=== PATIENT | male | born 1975 | race African-American/Black ===

== ENCOUNTER 2019-05-05 17:31 | Inpatient (IN) | payer OTHER ==
[~2019-05-05] VITALS: Ht 188 cm; Wt 147.2 kg
[2019-05-05] VITALS (8 sets, daily range): BP systolic 111–151; BP diastolic 53–92
[2019-05-05 18:10] LABS: ABSOLUTE NEUTROPHILS 8.5 thou/uL (1.4-8.2); EOSINOPHILS 0.1 % (0.0-3.0); HEMATOCRIT 56.3 % (42.0-52.0); HEMOGLOBIN 17.1 gm/dL (14.0-18.0); LYMPHOCYTES 10.5 % (24.0-44.0); MCHC 30.3 g/dL (28.0-37.0); MCV 95.5 fL (80.0-100.0); MONOCYTES 3.9 % (1.0-8.0); PLATELET COUNT 375 thou/uL (150-400); POLYS 84.5 % (36.0-66.0); RBC 5.89 mil/uL (4.50-6.00); RDW 15.8 % (10.5-14.5)
[2019-05-05 18:23] LABS: ANION GAP 27 mmol/L (7-16); BUN 66 mg/dL (7-18); CALCIUM 10.2 mg/dL (8.5-10.1); CHLORIDE 92 mmol/L (98-107); CO2 17 mmol/L (21-32); CREATININE 3.3 mg/dL (0.7-1.3); POTASSIUM 5.4 mmol/L (3.5-5.1); SODIUM 136 mmol/L (136-145)
[2019-05-05 18:29] LABS: ALBUMIN 4.1 g/dL (3.4-5.0); DIRECT BILIRUBIN < 0.1 mg/dL (<0.1-0.2); SGOT 16 U/L (15-37); SGPT 38 U/L (30-65); TOTAL BILIRUBIN 0.4 mg/dL (<0.1-1.0); TOTAL PROTEIN 8.9 g/dL (6.4-8.2); TROPONIN-I <0.06 ng/mL (<0.06)
[2019-05-05 18:42] LABS: GLUCOSE 1536 mg/dL (74-106)
[2019-05-05 18:54] LABS: BE(vivo) -12.5 mmol/L (-2 to +3); HCO3 13.6 mmol/L (22.0-26.0); PCO2 32.4 mmHg (35.0-45.0); PO2 77.3 mmHg (80.0-100.0); sO2 93.4 % (92.0-98.0)
[2019-05-05 18:55] LABS: pH 7.241 (7.360-7.450)
[2019-05-05] MEDS ORDERED: HYDROCHLOROTHIA25 M2 PO (18:56)
[2019-05-05] MEDS ORDERED: NORVASC5 MG PO (18:56)
[2019-05-05 19:30] LABS: CALCIUM 10.2 mg/dL (8.5-10.1); CREATININE 3.3 mg/dL (0.7-1.3); POTASSIUM 5.5 mmol/L (3.5-5.1)
[2019-05-05 19:31] LABS: ALBUMIN 4.2 g/dL (3.4-5.0); MAGNESIUM 3.8 mg/dL (1.8-2.4); PHOSPHORUS 7.5 mg/dL (2.5-4.9)
[2019-05-05 23:28] LABS: ANION GAP 27 mmol/L (7-16); BUN 73 mg/dL (7-18); CALCIUM 9.6 mg/dL (8.5-10.1); CHLORIDE 104 mmol/L (98-107); CHOLESTEROL 353 mg/dL (<200); CO2 15 mmol/L (21-32); CREATININE 3.3 mg/dL (0.7-1.3); HDL CHOLESTEROL 41 mg/dL (>40); LDL CHOLESTEROL 240 mg/dL (<100); MAGNESIUM 4.1 mg/dL (1.8-2.4); PHOSPHORUS 3.5 mg/dL (2.5-4.9); POTASSIUM 3.8 mmol/L (3.5-5.1); SODIUM 146 mmol/L (136-145); TC:HDL 8.6 Ratio (Not establshd); TRIGLYCERIDE 364 mg/dL (<150); VLDL 73 mg/dL (<40)
[2019-05-05 23:29] LABS: SERUM ASSESSMENT Clear
[2019-05-05 23:31] LABS: GLUCOSE 1179 mg/dL (74-106)
--- NOTE | 2019-05-05 23:34 | NUR ---
Pt admitted to ICU room 242 at 2039 from ED for DKA and hyperkalemia. Pt very lethargic, oriented x4 but slightly confused thought process. Pt initially wanting to go home because no male nurse was available to care for him (Pt is Rastafari), but convinced pt that his risk to his health was too great to allow him to leave hospital. Charge nurse aware and will try to accomadate pt's episcopalian needs next shift. Insulin gtt and fluids started per protocol. Unable to get glucometer reading since admit; blood glucose per lab at 2200 was 1179. Monitor sinus tachycardia, O2 sat > 95% on room air.
[2019-05-06] VITALS (21 sets, daily range): BP systolic 101–157; BP diastolic 67–116
[2019-05-06 01:12] LABS: ALBUMIN 3.9 g/dL (3.4-5.0); CALCIUM 9.9 mg/dL (8.5-10.1); CREATININE 3.1 mg/dL (0.7-1.3); MAGNESIUM 3.9 mg/dL (1.8-2.4); PHOSPHORUS 1.4 mg/dL (2.5-4.9); POTASSIUM 3.5 mmol/L (3.5-5.1)
[2019-05-06 02:07] LABS: GLYCOHEMOGLOBIN (HGB A1C) 11.3 % (4.8-5.6)
--- NOTE | 2019-05-06 04:05 | NUR ---
Extreme difficulty getting labs drawn due to pt being "hard stick" and inability to draw from peripheral IV's. Labs obtained q 3-4 hours per lab but unable to get hourly blood sugars.
[2019-05-06 05:09] LABS: HEMATOCRIT 49.3 % (42.0-52.0); HEMOGLOBIN 16.2 gm/dL (14.0-18.0); MCH 28.5 pg (26.0-34.0); MCHC 32.9 g/dL (28.0-37.0); RBC 5.71 mil/uL (4.50-6.00); RDW 13.8 % (10.5-14.5); WBC 12.6 thou/uL (4.0-11.0)
[2019-05-06 05:10] LABS: MCV 86.5 fL (80.0-100.0)
[2019-05-06 05:49] LABS: CALCIUM 9.8 mg/dL (8.5-10.1); CREATININE 2.9 mg/dL (0.7-1.3); PHOSPHORUS 2.2 mg/dL (2.5-4.9); POTASSIUM 3.9 mmol/L (3.5-5.1)
--- NOTE | 2019-05-06 07:24 | NUR ---
Pt progressing toward goals. Anion gap down to 10 from 29; blood sugar now below 500. Serum sodium has increased overnight and is now 156; nurse practioner notified and D5W started instead of normal DKA protocol fluids. Pt now more alert, no slurred speech, more coordinated muscle movement. 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 Remains on room air, sat > 92%. Pt woke up yelling "Incoming! Incoming!" around 0300. 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
--- NOTE | 2019-05-06 09:00 | NUR ---
RD consult received for pt with newly dx diabetes. Admit with DKA BG 1500, A1C 11.3. Hypernatremia, KAYCE. Extreme class III obesity, BMI 40.1. On insulin GTT. Na 156-started on D5 fluids. Will await for diet to advance and pt to stabilize, then initiate nutrition education for carb controlled diet.
[2019-05-06 09:04] LABS: ALBUMIN 4.2 g/dL (3.4-5.0); CALCIUM 10.5 mg/dL (8.5-10.1); CREATININE 2.8 mg/dL (0.7-1.3); MAGNESIUM 3.9 mg/dL (1.8-2.4); PHOSPHORUS 2.4 mg/dL (2.5-4.9); POTASSIUM 3.6 mmol/L (3.5-5.1)
--- NOTE | 2019-05-06 09:06 | EKG ---
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: GOLD : 1975 Requested By: Jake Worley Order Number: [id number] MD: Claude Edmonds Measurements Intervals [place] Rate: 133 P: 45 OK: 111 QRS: 108 QRSD: 91 T: -19 QT: 317 QTc: 472 Interpretive Statements Sinus tachycardia Right axis deviation Poor R wave progression Borderline repolarization abnormality Baseline wander in lead(s) V1 No previous ECG available for comparison Electronically Signed On 05-06-2019 9:04:51 CDT by Claude Edmonds [email or web address] <ELECTRONICALLY SIGNED> By: Claude Edmonds MD, [facility] 05/06/19 0904 1733 1733 Claude Edmonds MD, [facility] /EPI
--- NOTE | 2019-05-06 10:00 | NUR ---
chart review. cm called and spoke with harry via phone call, soft spoke. intro to cm and dcp, [facility]. per pt he reported " independent when feeling ok, support from and his mother. hugh. did not know was dm, no supplies. have bcbs through my work. no primary dr but i need to get one. [facility]. i do not have card, i drove right here. pt could not recall [facility]. no dme equi. no hh or rehab in past. 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 will cont following as needed for dc needs. education on dm kit with supplies needed over the counter at [facility] to check his blood sugar at home. left message with dw to check on pt insurance if have active insurance.
[2019-05-06 12:37] LABS: ALBUMIN 3.6 g/dL (3.4-5.0); CALCIUM 9.6 mg/dL (8.5-10.1); CREATININE 2.4 mg/dL (0.7-1.3); MAGNESIUM 3.5 mg/dL (1.8-2.4); PHOSPHORUS 3.2 mg/dL (2.5-4.9)
[2019-05-06 12:42] LABS: POTASSIUM 4.4 mmol/L (3.5-5.1)
--- NOTE | 2019-05-06 16:30 | NUR ---
SIG OTHER LEFT MESSAGE, NO RX COVERAGE EITHER. HE WILL POSSIBLE NEEDS ASSISTANCE WITH VOUCH OF MEDICATION FOR DC HOME RT PAT, THEN CAN FOLLOW UP WITH [facility] WHERE HE HAS BEEN IN THE PAST FOR HIS BP MEDICATIONS.
--- NOTE | 2019-05-06 16:36 | NUR ---
ASSUMED CARE AT 0700, ASSESSMENT AND VITAL SIGNS COMPLETED PER ICU PROTOCOL. DR. LANGLEY ROUNDED THIS AM, NEW ORDERS RECEIVED AND EXECUTED. DR. ESQUIVEL ROUNDED, NEW ORDERS RECEIVED AND EXECUTED.
[2019-05-06 16:52] LABS: ALBUMIN 3.8 g/dL (3.4-5.0); CALCIUM 9.8 mg/dL (8.5-10.1); CREATININE 2.4 mg/dL (0.7-1.3); MAGNESIUM 3.1 mg/dL (1.8-2.4); PHOSPHORUS 2.9 mg/dL (2.5-4.9); POTASSIUM 3.9 mmol/L (3.5-5.1)
[2019-05-06 20:12] LABS: CALCIUM 9.2 mg/dL (8.5-10.1); CREATININE 2.4 mg/dL (0.7-1.3); POTASSIUM 3.7 mmol/L (3.5-5.1)
[2019-05-06 20:16] LABS: ALBUMIN 3.4 g/dL (3.4-5.0); MAGNESIUM 2.8 mg/dL (1.8-2.4); PHOSPHORUS 3.2 mg/dL (2.5-4.9)
[2019-05-07] VITALS (11 sets, daily range): BP systolic 114–150; BP diastolic 67–93
[2019-05-07 05:45] LABS: ABSOLUTE NEUTROPHILS 7.2 thou/uL (1.4-8.2); BASOPHILS 1.5 % (0.0-2.0); EOSINOPHILS 0.3 % (0.0-3.0); HEMOGLOBIN 15.8 gm/dL (14.0-18.0); LYMPHOCYTES 18.9 % (24.0-44.0); MCH 28.7 pg (26.0-34.0); MCHC 33.6 g/dL (28.0-37.0); MCV 85.5 fL (80.0-100.0); MONOCYTES 7.6 % (1.0-8.0); POLYS 71.7 % (36.0-66.0); RDW 13.9 % (10.5-14.5); WBC 10.1 thou/uL (4.0-11.0)
[2019-05-07 05:46] LABS: PLATELET COUNT 293 thou/uL (150-400)
[2019-05-07 05:56] LABS: CALCIUM 9.2 mg/dL (8.5-10.1); CREATININE 2.1 mg/dL (0.7-1.3); POTASSIUM 3.4 mmol/L (3.5-5.1)
[2019-05-07 06:03] LABS: ALBUMIN 3.2 g/dL (3.4-5.0); TOTAL BILIRUBIN 0.7 mg/dL (<0.1-1.0); TOTAL PROTEIN 7.3 g/dL (6.4-8.2)
--- NOTE | 2019-05-07 11:18 | NUR ---
PATIENT ALERT AND ORIENTED AND DENIES PAIN. VITALS STABLE. ON INSULIN GTT FOR HYPERGLYCEMIA, ORDERS TO DC ONCE LANTUS ADMINISTERED. PATIENT TOLERATING DIET W/O NAUSEA. BROTHER UPDATED OVER THE PHONE. ORDERS RECEIVED TO TRANSFER OUT OF ICU.
--- NOTE | 2019-05-07 11:45 | NUR ---
discussed during los, possible dc home over weekend. 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 infromation passed to MD that we need rx efaxed or called in to outpt [facility].
--- NOTE | 2019-05-07 12:43 | HC ---
[facility] [place] [address] CONSULTATION Name: RHONA DO Room #: 242-P [facility] IN M.R.#: [id number] Admission: 05/05/19 Attend Phys: Carolynn Valdovinos Discharge: Date of : 71 Report #: [id number] THIS REPORT FOR: cc: AMARILYS Polo family physician/PCP AMARILYS - Melani family physician/PCP Oneyda Chapa MD ~ CC: Branden PANDA physician/PCP DATE OF SERVICE: 05/06/2019 ENDOCRINE CONSULTATION NOTE CONSULTING PHYSICIAN: Dr. Orozco. REASON FOR CONSULTATION: DKA, type 2 diabetes mellitus. HISTORY OF PRESENT ILLNESS: This is a 44-year-old male patient whose medical background is only noted for hypertension and obesity, who presented to the ER with progressive nausea, vomiting, abdominal discomfort and weakness and was found to be in severe hyperglycemia and metabolic acidosis on presentation. These complaints have evolved gradually over a period of 3-4 days. The patient was subsequently admitted to the ICU for further care and monitoring. He notes that he has felt progressively fatigued, tired and has had issues with polyuria, polydipsia and slight weight loss over the past several weeks. He is not aware of a prior diagnosis of type 2 diabetes mellitus. The patient is a known hypertensive and is on a combination of amlodipine and hydrochlorothiazide. 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 REVIEW OF SYSTEMS: CONSTITUTIONAL: Fatigue, tiredness, weight loss. No fever or chills. HEENT: Negative for sore throat, sinus pain, ear drainage. PULMONARY: Negative for shortness of breath, cough or hemoptysis. CARDIAC: Negative for chest pain, palpitations, syncope or presyncope. GASTROINTESTINAL: Noted for abdominal discomfort, nausea, vomiting. NEUROLOGY: Noted for lightheadedness, dizziness, but not loss of consciousness or seizure activity. UROLOGY: Noted for polyuria, nocturia, but dysuria or hematuria. SKIN: Negative for rash, ulceration or other major abnormalities. Otherwise, his review of system is unremarkable other than those mentioned in HPI. PAST MEDICAL HISTORY: 1. Hypertension. 2. Obesity. [facility] [address] [place] [address] CONSULTATION Name: RHONA DO Bing Room #: 242-P [facility] IN [facility].#: [id number] Admission: 05/05/19 Attend Phys: Carolynn Valdovinos Discharge: Date of : 71 Report #: [id number] OUTPATIENT MEDICATIONS: Include amlodipine 5 mg daily and hydrochlorothiazide 25 mg daily. ALLERGIES: No known drug allergies. FAMILY HISTORY: Noncontributory. 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 He denies use of tobacco or illicit drugs and drinks alcohol only occasionally. PHYSICAL EXAMINATION: GENERAL: Pleasant -Ecuadorean male patient who is not in apparent pain or distress. VITAL SIGNS: Blood pressure is 143/99 mmHg, heart rate is 120 per minute, respirations 14 per minute, temperature 36.3 degrees Celsius. CONSTITUTIONAL: The patient is lying in bed, appears comfortable, not in apparent distress. HEENT: Anicteric sclerae. Intact extraocular motions. NECK: Supple, without JVD. No thyromegaly. CHEST: Noted for moderate air entry bilaterally with scattered rales. HEART: Regular rate and rhythm without murmurs or gallops. ABDOMEN: Obese, but soft and lax. No guarding. Active bowel sounds. EXTREMITIES: Lower extremity exam, trace ankle edema. No skin breaks or ulcerations. The patient has good pedal pulses. NEUROLOGIC: Awake, alert and oriented to time, place and person. The remainder of his examination is nonfocal. PSYCHIATRIC: Pleasant, interactive, appropriate. Normal mood and affect. LABORATORY RESULTS: Blood glucose on arrival was severely elevated and above 500. That had declined gradually towards 370 mg/dL at this point. Sodium on arrival was 136, now at 156, potassium 3.6, CO2 of 32, chloride 115, anion gap 9, BUN 69, creatinine 2.8, was 3.3 on arrival, glucose on arrival was 1536 and it went only under 1893 at 12:50 a.m. earlier today. AST 16, total bilirubin 0.4, calcium 10.5, phosphorus 2.4, magnesium 3.9, alkaline phosphatase 129, ALT 38, total protein 8.9, albumin 4.2. EGFR 30. Lactic acid 3.7. Troponin is negative. Total cholesterol 353, triglycerides 364, HDL 41, LDL 240. White blood count 12.6, hemoglobin 16.2, hematocrit 49.3, platelets 372. Hemoglobin A1c is 11.3%. ASSESSMENT AND PLAN: 1. Diabetic ketoacidosis. The patient presented in diabetic ketoacidosis in the setting of severe hyperglycemia in excess of 1500 mg/dL along with an element of lactic acidosis. He was admitted to the Intensive Care Unit and managed appropriately with intravenous insulin and intravenous fluid support. The patient has declined his blood glucose values progressively, but he remains [facility] [address] [place] [address] CONSULTATION Name: RHONA DO II Room #: 242-P ADM IN M.R.#: [id number] Admission: 05/05/19 Attend Phys: Carolynn Valdovinos Discharge: Date of : 71 Report #: [id number] hyperglycemic and continues to need aggressive insulin support at a rate of 21 units per hour at the time of this dictation. Moreover, while his anion gap closed, he continues to have significant metabolic abnormalities including renal insufficiency, hypernatremia, hypercalcemia, hypermagnesemia. Given this outlook, I certainly do not believe that the patient is ready yet to discontinue intravenous insulin and would like him to maintain the current approach as per the [facility] DKA protocol in order to allow him more time to reverse the various metabolic abnormalities he is dealing with. Blood glucose monitoring will continue hourly to bihourly as needed while on IV insulin as per protocol. Further metabolic assessments will be conducted while he is in this line of therapy. 2. Type 2 diabetes mellitus. This constitutes a new diagnosis of diabetes for the patient. I counseled the patient at length about the pathogenesis of type 2 diabetes mellitus, its implications and the fact that he very much likely had it for at least several months prior to this presentation. 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 We discussed this at length. I do believe that once he is off of intravenous insulin that injectable insulin therapy will need to be included in his initial treatment regimen. His baseline hemoglobin A1c is 11.3%. We also touched on the necessary diet and exercise measures to be undertaken. 2. Renal insufficiency. The patient presents in renal insufficiency, which improved somewhat overnight, likely due to reversing his dehydrated state. I am hopeful to see his renal function normalized further with more support and as he reverses his other metabolic deficits and receives adequate intravenous fluid therapy. Further renal function assessments will be needed later today and tomorrow. 3. Hyperlipidemia. The patient has severe hyperlipidemia. This certainly raises concerns over his cardiovascular safety in future. I believe that his state of severe hyperglycemia has contributed to this outlook and it would certainly be warranted to reevaluate in the near future when he is more stable. However, statin therapy will be necessary. I would like to put this off; however, until he is more stable and off of intravenous insulin to ensure adequate tissue perfusion. 4. Hypertension. The patient is known to have hypertension and is maintained on amlodipine, hydrochlorothiazide in the outpatient setting. He has been resumed on Norvasc therapy and has an acceptable blood pressure control for the most part. 5. Hypercalcemia. The patient is hypercalcemia; however, this would be hard to fully evaluate in the midst of his several metabolic abnormalities. I would like to revisit this once he is more stable. I certainly appreciate this consultation by Dr. Orozco. <ELECTRONICALLY SIGNED> By: Oneyda Chapa MD 05/07/19 1243 1243 1403 Oneyda Chapa MD /nt
--- NOTE | 2019-05-07 14:46 | NUR ---
PATIENT TRANSFERRED TO 439 WITH BELONGINGS.
--- NOTE | 2019-05-07 20:10 | NUR ---
ASSUMED CARE OF PATIENT APPROX 1300. PT A&OX4, VSS, DENIES PAIN. PATIENT RECIEVING BLOOD SUGAR CHECK. PATIENT HAS STANDARD INSULIN AND SLIDING SCALE GIVEN ORDERED. NO SIGNS OF DISTRESS. WILL CONTINUE TO MONITOR.
--- NOTE | 2019-05-08 05:44 | NUR ---
RECIEVED CARE OF THIS PATIENT AT 1900. PATIENT ALERT AND ORIENTED X4. DENIES PAIN. UP IN HALLS. PIV IN BOTH AC'S. ACCUCHECK WAS 404. MIXER OPERATOR HELPER HOT METAL WAS NOTIFIED. ORDER TO GIVE AN EXTRA 4 UNITS OF LISPRO INSULIN AND RECHECK. WAS RECHECKED AND IT WAS 246. PATIENT SLEPT MOST OF THIS SHIFT. IS NOT A FALL RISK.
[2019-05-08 08:44] VITALS: BP 138/96
--- NOTE | 2019-05-08 17:22 | NUR ---
ASSUMED CARE OF THE PT AT 0700. PTS BS IS CONTROLLED BY INSULIN AND BS HAS DROPPED WITH INSULIN SLIDING SCALE AND ADJUSTMENTS. NO C/O PAIN. PT IS NOT A FALL RISK AND IS AMBULATORY, WALKS THE HALLS FREQ. L AC AND R AC DRY AND INTACT. BED IN THE LOWEST POSITION AND CLAL LIGHT IS WITHIN REACH. WILL CONTINUE TO MONITOR THE PT.
[2019-05-08 18:10] VITALS: BP 125/74
[2019-05-08 19:20] VITALS: BP 124/86
[2019-05-09 01:23] LABS: URINE BILIRUBIN NEGATIVE (Negative); URINE BLOOD NEGATIVE (Negative); URINE CLARITY CLEAR; URINE COLOR YELLOW; URINE GLUCOSE-RANDOM* TRACE (Negative); URINE KETONES NEGATIVE (Negative); URINE LEUKOCYTES-REFLEX NEGATIVE (Negative); URINE NITRITE-REFLEX NEGATIVE (Negative); URINE PROTEIN (DIPSTICK) NEGATIVE (Negative); URINE SPECIFIC GRAVITY 1.025 (1.005-1.035); URINE UROBILINOGEN 0.2 E.U./dl (0.2-1.0)
[2019-05-09 04:15] VITALS: BP 115/96
--- NOTE | 2019-05-09 05:33 | NUR ---
PT AMBULATING IN HALLWAYS INDEPENDENTLY AND IS TOLERATING WELL. DENIES PAIN. PLAN FOR POSSIBLE DISCHARGE 05/08. RESTING COMFORTABLY. NO NEEDS VOICED. CALL LIGHT WITHIN REACH. FREQUENT OBSERVATION.
[2019-05-09 07:59] VITALS: BP 109/68
[2019-05-09 09:05] VITALS: BP 109/68
[2019-05-09] MEDS ORDERED: LANTUS SUBQ (10:04)
[2019-05-09] MEDS ORDERED: LISINOPRIL10 MG PO (10:04)
[2019-05-09] MEDS ORDERED: LIPITOR 20 MG T20 M1 PO (10:04)
[2019-05-09] MEDS ORDERED: HUMALOG100 UNIT/1 SUBQ (10:04)
[2019-05-09] MEDS ORDERED: GLIPIZIDE ER2.5 MG PO (10:05)
[2019-05-09] MEDS ORDERED: INSULIN SYRING1 EA25 SUBQ (10:09)
--- NOTE | 2019-05-09 20:09 | NUR ---
VSS-AFEBRILE. EXTENSIVE EDUCATION REGARDING NEW DIABETES DIAGNOSIS. PATIENT WAS ABLE TO DEMONSTRATE HOW TO DO A FINGER STICK, USE A GLUCOMETER, AND DRAW UP AND INJECT INSULIN CORRECTLY. PROVIDED EDUCATIONAL MATERIALS ON DIABETES WELL ON HIS NEWLY PRESCRIBED MEDICATIONS. PROVIDED UNIT PHONE NUMBER FOR CONTACT SHOULD HE HAVE FURTHER QUESTIONS OR CONCERNS. VERBALIZED UNDERSTANDING OF ALL MATERIALS. REMOVED BOTH IV'S, LEFT UNIT IN WHEELCHAIR WITH STAFF AND ALL PERSONAL BELONGINGS. LEFT HOSPITAL WITH SIGNIFICANT OTHER IN PRIVATE VEHICLE.
== END 2019-05-09 18:03 | disposition home or self-care (01) | DRG 637 ==
LOC: ER 17:31 → EROBS 19:20 → ICU 19:20 → 4S 05-07 14:00
PROVIDERS: Hospitalist; Nurse Practitioner; Nurse Practitioner Family; ADMIT Hospitalist
DX: E11.10 Type 2 diabetes mellitus with ketoacidosis without coma (principal); G93.41 Metabolic encephalopathy; N17.9 Acute kidney failure, unspecified; E87.0 Hyperosmolality and hypernatremia; E87.5 Hyperkalemia; E83.52 Hypercalcemia; E83.41 Hypermagnesemia; E78.5 Hyperlipidemia, unspecified; E66.01 Morbid (severe) obesity due to excess calories; N18.3 Chronic kidney disease, stage 3 (moderate); E11.22 Type 2 diabetes mellitus with diabetic chronic kidney disease; I12.9 Hypertensive chronic kidney disease with stage 1 through stage 4 chronic kidney disease, or unspecified chronic kidney disease; Z68.41 Body mass index [BMI] 40.0-44.9, adult; Z79.899 Other long term (current) drug therapy; Z83.3 Family history of diabetes mellitus; Z82.49 Family history of ischemic heart disease and other diseases of the circulatory system
CPT/HCPCS: 10078; 10100

== ENCOUNTER 2021-01-11 05:06 | Emergency (ER) | payer OTHER ==
[~2021-01-11] VITALS: Ht 188 cm; Wt 136.1 kg
[~2021-01-11 05:06] MED LIST: GLIPIZIDE ER2.5 MG PO; HUMALOG100 UNIT/1 SUBQ; HYDROCHLOROTHIA25 M2 PO; INSULIN SYRING1 EA25 SUBQ; LANTUS SUBQ; LIPITOR 20 MG T20 M1 PO; LISINOPRIL10 MG PO; NORVASC5 MG PO
[2021-01-11] MEDS ORDERED: [UNRECOGNIZED DRUG - OTHER] (05:35)
[2021-01-11 05:39] LABS: ABSOLUTE NEUTROPHILS 2.1 thou/uL (1.4-8.2); BASOPHILS 0.8 % (0.0-2.0); EOSINOPHILS 2.3 % (0.0-3.0); HEMATOCRIT 42.8 % (42.0-52.0); HEMOGLOBIN 13.9 gm/dL (14.0-18.0); LYMPHOCYTES 23.2 % (24.0-44.0); MCH 26.7 pg (26.0-34.0); MCHC 32.5 g/dL (28.0-37.0); MCV 82.2 fL (80.0-100.0); MONOCYTES 17.4 % (1.0-8.0); PLATELET COUNT 262 thou/uL (150-400); POLYS 56.3 % (36.0-66.0); RDW 13.3 % (10.5-14.5); WBC 3.8 thou/uL (4.0-11.0)
[2021-01-11 05:48] LABS: CREATININE 1.5 mg/dL (0.7-1.3); POTASSIUM 3.5 mmol/L (3.5-5.1)
[2021-01-11 05:56] LABS: ALBUMIN 3.5 g/dL (3.4-5.0); TOTAL BILIRUBIN 0.5 mg/dL (0.2-1.0); TOTAL PROTEIN 7.3 g/dL (6.4-8.2)
[2021-01-11 07:13] LABS: URINE BILIRUBIN NEGATIVE (Negative); URINE BLOOD NEGATIVE (Negative); URINE CLARITY CLEAR; URINE COLOR YELLOW; URINE GLUCOSE-RANDOM* 3+ (Negative); URINE KETONES NEGATIVE (Negative); URINE LEUKOCYTES-REFLEX NEGATIVE (Negative); URINE NITRITE-REFLEX NEGATIVE (Negative); URINE PROTEIN (DIPSTICK) NEGATIVE (Negative); URINE UROBILINOGEN 0.2 E.U./dl (0.2-1.0)
[2021-01-11 07:32] VITALS: BP 124/80
--- NOTE | 2021-01-11 08:06 | EKG ---
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: derek : 1975 Requested By: Servando Parisi Order Number: [id number] MD: Charles Velasquez Measurements Intervals Hector Rate: 84 P: 43 ME: 170 QRS: -7 QRSD: 96 T: 11 QT: 359 QTc: 425 Interpretive Statements Sinus rhythm Abnormal R-wave progression, late transition Compared to ECG 05/05/2019 17:33:20 Sinus tachycardia no longer present Right-axis deviation no longer present Poor R-wave progression no longer present Electronically Signed On 01-11-2021 8:06:06 SLABBER by Charles Velasquez [email or web address] <ELECTRONICALLY SIGNED> By: Charles Velasquez MD, [facility] 01/11/21805 4 4 Charles Velasquez MD, FACC /EPI
== END 2021-01-11 07:32 | disposition home or self-care (01) ==
LOC: ER 05:06
PROVIDERS: Emergency Medicine
DX: R42 Dizziness and giddiness (principal); I10 Essential (primary) hypertension; E11.9 Type 2 diabetes mellitus without complications; Z79.4 Long term (current) use of insulin; Z79.891 Long term (current) use of opiate analgesic; Z79.899 Other long term (current) drug therapy